=== PATIENT | male | born 1965 | race Caucasian/White ===

== ENCOUNTER 2017-09-19 02:48 | Emergency (ER) | payer SELFPAY ==
[2017-09-19] MEDS ORDERED: CLINDAMYCIN 600 MG/D5W RTU 600 MG/50 ML RTUPB IV ONE (04:46)
[2017-09-19] MEDS ORDERED: DEXAMETHASONE SOD PHOS INJ 10 MG/1 ML VIAL IV ONE (04:46)
--- NOTE | 2017-09-19 04:51 | ER Document Report ---
ED General - General Chief Complaint: Toothache Stated Complaint: TOOTH PAIN Time Seen by Provider: 09/19/17 04:41 Notes: Patient is a 52-year-old male who presents with complaints of dental pain that started yesterday. He went to his doctor started on penicillin. He demonstrates no swelling underneath his chin and underneath his tongue. He says it hurts to swallow. He says some subjective fevers. No vomiting. No difficulty breathing. Said the swelling started around 11 PM and has progressed. TRAVEL OUTSIDE OF THE [place] IN LAST 30 DAYS: No - Related Data Allergies/Adverse Reactions: No Known Allergies Allergy (Unverified 11/05/13 11:55) Past Medical History - Social History Smoking Status: Unknown if Ever Smoked Frequency of alcohol use: None Drug Abuse: None Family History: CAD - father and uncles - Past Medical History Cardiac Medical History: Reports: Hx Hypertension Musculoskeletal Medical History: Reports Hx Arthritis - bilateral knees, Reports Hx Gout Review of Systems - Review of Systems Notes: My Normal Review Basic REVIEW OF SYSTEMS: CONSTITUTIONAL : Denies fever, chills, or sweats. Denies recent illness. EENT: dental pain, neck swelling CARDIOVASCULAR: Denies chest pain. RESPIRATORY: Denies cough, cold, or chest congestion. Denies shortness of breath, difficulty breathing, or wheezing. MUSCULOSKELETAL: Denies neck or back pain or joint pain or swelling. SKIN: Denies rash or skin lesions. NEUROLOGICAL: Denies altered mental status or loss of consciousness. Denies headache. Denies weakness or paralysis or loss of use of either side. Denies problems with gait or speech. Denies sensory or motor loss. ALL OTHER SYSTEMS REVIEWED AND NEGATIVE. Physical Exam - Vital signs Vitals: Temp Pulse Resp BP Pulse Ox 99.7 F 69 18 127/79 H 94 09/19/17 02:52 09/19/17 02:52 09/19/17 02:52 09/19/17 02:52 09/19/17 02:52 - Notes Notes: General Appearance: Well nourished, alert, cooperative, no acute distress, no obvious discomfort. Vitals: reviewed, See vital signs table. Head: no swelling or tenderness to the head Eyes: PERRL, EOMI, Conjuctiva clear Mouth: No decreasd moisture patient does have some swelling below the tongue. Does have some dental caries. Throat: No tonsillar inflammation, No airway obstruction, No lymphadenopathy Neck: Supple, no neck tenderness, some swelling to the anterior neck on exam. Lungs: No wheezing, No rales, No rhonci, No accessory muscle use, good air exchange bilaterally. Heart: Normal rate, Regular rythm, No murmur, no rub Skin: warm, dry, appropriate color, no rash Neuro: speech clear, oriented x 3, normal affect, responds appropriately to questions. Course - Re-evaluation Re-evalutation: 09/19/17 06:07 Patient still some swelling underneath the tongue underneath the chin and mandible however is not really increased in size since he has been here. Says he feels a bit better after receiving the Decadron. He did receive dose of clindamycin IV. CT scan does show some lymphadenopathy but no abscess collection. He does have leukocytosis. On his intraoral examination patient does have some swelling beneath the tongue. This can sometimes be seen with a salivary duct stone; however, patient had dental pain for 24 hours before the swelling started and also has a leukocytosis and therefore I think is more likely to be related to dental infection. I therefore called Dr. Block, will surgeon on-call, who agreed to see his the patient in his office this morning at 8:30 AM. Patient has no signs of impending airway compromise. - Vital Signs Vital signs: Temp Pulse Resp BP Pulse Ox 99.7 F 69 18 127/79 H 94 09/19/17 02:52 09/19/17 02:52 09/19/17 02:52 09/19/17 02:52 09/19/17 02:52 - Laboratory Result Diagrams: 09/19/17 05:00 09/19/17 05:00 Laboratory results interpreted by me: 09/19/17 09/19/17 05:00 05:00 WBC 13.3 H RDW 14.8 H Lymphocytes % 12.3 L Absolute Neutrophils 10.1 H Glucose 138 H Discharge - Discharge Clinical Impression: Pain, dental, Facial swelling Condition: Good Disposition: HOME, SELF-CARE Instructions: Oral Narcotic Medication ([facility]), Clindamycin ([facility]) Additional Instructions: Please go to Dr. Block's office at [email or web address] [employer] this morning at 8: 30am. Do not skip this appointment. He is expecting to see you at that time. Please return to the ER immediately if you develop difficulty breathing or feel unwell. Prescriptions: Clindamycin HCl 300 mg PO ASDIR #56 capsule Referrals: YARELIS BLOCK MD [ACTIVE STAFF] - 09/19/17
[2017-09-19] MEDS ORDERED: HYDROMORPHONE HCL INJ/PF 2 MG/ML AMPULE IV ONE ×2 (05:08→06:14)
[2017-09-19] MEDS ORDERED: NORMAL SALINE 1000 ML 1,000 ML IV ONE (05:16)
[2017-09-19 05:40] LABS: ABSOLUTE BASOPHILS # (AUTO) 0.1 10^3/uL (0.0-0.2); ABSOLUTE EOSINOPHILS # (AUTO) 0.1 10^3/uL (0.0-0.6); ABSOLUTE LYMPHOCYTES (AUTO) 1.6 10^3/uL (0.5-4.7); ABSOLUTE MONOCYTES (AUTO) 1.3 10^3/uL (0.1-1.4); ABSOLUTE NEUT (AUTO) 10.1 10^3/uL (1.7-8.2); BASOPHILS % (AUTO) 0.4 % (0-2); EOSINOPHILS % (AUTO) 1.1 % (0-6); HEMATOCRIT 43.1 % (37.9-51.0); HEMOGLOBIN 14.8 g/dL (13.5-17.0); LYMPHOCYTES % (AUTO) 12.3 % (13-45); MEAN CORPUSCULAR HEMOGLOBIN 30.5 pg (27.0-33.4); MEAN CORPUSCULAR HGB CONC 34.4 g/dL (32.0-36.0); MEAN CORPUSCULAR VOLUME 89 fl (80-97); MONOCYTES % (AUTO) 10.1 % (3-13); PLATELET COUNT 268 10^3/uL (150-450); RED BLOOD COUNT 4.86 10^6/uL (4.35-5.55); RED CELL DISTRIBUTION WIDTH 14.8 % (11.5-14.0); SEGMENTED NEUTROPHILS % (AUTO) 76.1 % (42-78); TOTAL CELLS COUNTED % (AUTO) 100 %; WHITE BLOOD COUNT 13.3 10^3/uL (4.0-10.5)
--- NOTE | 2017-09-19 05:50 | RADIOLOGY REPORT (SQ) ---
EXAM DESCRIPTION: CT NECK WITH IV CONTRAST COMPLETED DATE/TME: 09/19/2017 04:46 CLINICAL HISTORY: 52 years Male, anterior neck swelling, ? dental cause Comparison: None. Technique: IV contrast. Coronal and sagittal reformat. This exam was performed according to our departmental dose-optimization program, which includes automated exposure control, adjustment of the mA and/or kV according to patient size and/or use of iterative reconstruction technique. [facility]: Dose Right [facility]: CareDose [facility]: Dose Right [facility]: Teradose 4D [facility]: Brightpearl LIMITATIONS: None Findings: Amalgam artifact. Mild to moderate lymphadenopathy includes a 2.5 x 1.3 cm right suprahyoid cervical lymph node, moderate bilateral submandibular lymph nodes. No evidence of abscess. Moderate disc desiccation between the C5 and C7 levels and mild disc desiccation of the upper thoracic spine, moderate spondylosis of the cervical spine, mild-moderate bilateral mid and lower cervical spondylosis, left more than right Remaining nuchal soft tissues, lower cranium, upper thorax, and musculoskeleton appear otherwise unremarkable. Impression: Moderate cervical lymphadenopathy.
[2017-09-19 05:54] LABS: ANION GAP 13 (5-19); BLOOD UREA NITROGEN 18 mg/dL (7-20); CALCIUM 9.6 mg/dL (8.4-10.2); CARBON DIOXIDE 26 mmol/L (22-30); CHLORIDE 101 mmol/L (98-107); GLUCOSE 138 mg/dL (75-110); SODIUM 140.2 mmol/L (137-145)
[2017-09-19] MEDS ORDERED: HYDROCODONE/ACETAMINOPHEN 5-325 MG (6 TAB/ER DISP) PO PRN (06:07)
[2017-09-19 06:20] VITALS: BP 115/75
== END 2017-09-19 06:29 | disposition home or self-care (01) ==
LOC: ER 02:48
DX: K02.9 Dental caries, unspecified (principal); R22.0 Localized swelling, mass and lump, head; R59.0 Localized enlarged lymph nodes; K08.89 Other specified disorders of teeth and supporting structures; I10 Essential (primary) hypertension; D72.829 Elevated white blood cell count, unspecified
CPT/HCPCS: 96376; 99284; 96375; 96365; 36415; 85025; 80048; 70491; J1170; J7030; J1100